=== PATIENT | female | born 1955 | race Caucasian/White ===

== ENCOUNTER 2016-05-01 08:26 | Inpatient (IN) | payer OTHER ==
[~2016-05-01] VITALS: Ht 165.1 cm; Wt 131.3 kg
[~2016-05-01 08:26] MED LIST: /BACTSSTA PO; /CELE20CA OR; /CELE20CA PO; /ESCI10TA OR; /PANT40TA OR; ALBU83IN INH; ALBUTEROL INH; AMLO10TAB OR; ASPI325T OR; BACT800T PO; CHLORTHALIDONE PO; CLIN150C OR; COLA50CA3 PO; COZA100T OR; GABA600T3 OR; GLUC1000 OR; GLUC10TA3 PO; HYDR10TA2 OR; HYDR25TA8 OR; INSULANT SC; LEVO500T PO; LIPI20TA OR; LOVAZA PO; NOVOINJ3 SC; SPIR25TA2 PO; TRAM50TA2 OR; TRILIPIX PO; TYLE325T5 PO; VESICARE PO
[2016-05-01] MEDS ORDERED: NS 1,000 ML IV SCH (09:26)
[2016-05-01] MEDS ORDERED: GLUCAGON FOR INJ 1 MG VIAL (J1610) SC PRN (09:30)
[2016-05-01] MEDS ORDERED: ONDANSETRON 4MG/2ML VIAL (J2405) IV PRN (09:30)
[2016-05-01] MEDS ORDERED: GLUCOSE 4 GM CHEW TABLET PO PRN (09:30)
[2016-05-01] MEDS ORDERED: DEXTROSE 50% 50 ML SYRINGE IV PRN (09:30)
[2016-05-01 10:39] VITALS: BP 170/86
[2016-05-01 11:33] LABS: BASO % 0.2 % (0.0-1.0); EOS # 0.2 K/mm3 (0.0-0.50); EOS % 1.8 % (0.0-3.0); INR 0.89; LARGE UNSTAINED CELL # 0.1 K/mm3 (0.0-0.4); LARGE UNSTAINED CELL % 1.3 % (0.0-4.0); LYMPH # 1.1 K/mm3 (1.5-4.5); MEAN CORPUSCULAR HEMOGLOBIN 22.8 pg (27.0-33.0); MEAN CORPUSCULAR VOLUME 76.2 fl (80.0-96.0); MONO # 0.5 K/mm3 (0.0-0.8); MONO % 4.7 % (0.0-5.0); NEUTROPHILS # 9.3 K/mm3 (1.8-7.7); PLATELET COUNT, AUTOMATED 454 k/mm3 (150-450); RED CELL DISTRIBUTION WIDTH 15.1 % (11.5-14.5); WHITE BLOOD COUNT 11.3 K/mm3 (4.0-10.0)
[2016-05-01 11:59] LABS: ALBUMIN 1.8 GM/DL (3.2-5.2); ALBUMIN/GLOBULIN RATIO 0.53 (1.00-1.93); BILIRUBIN,TOTAL 0.2 MG/DL (0.2-1.0); CALCIUM LEVEL 7.7 MG/DL (8.8-10.2); CREATININE FOR GFR 1.05 MG/DL (0.55-1.02); GLOMERULAR FILTRATION RATE 56.7 (>45); MAGNESIUM LEVEL 2.2 MG/DL (1.8-2.4); POTASSIUM SERUM 4.1 MEQ/L (3.5-5.1); THYROXINE (T4) 5.8 UG/DL (4.5-12.0); TOTAL PROTEIN 5.2 GM/DL (6.4-8.2)
[2016-05-01] MEDS: HumaLOG INSULIN (NovoLOG) PER UNIT SC SCH ×3 (12:00→21:31)
--- NOTE | 2016-05-01 12:17 | REP ---
CHEST X-RAY: Two views. HISTORY: Syncope. COMPARISON: Chest x-ray July 25, 2015. FINDINGS: There is mild to moderate cardiomegaly again noted. There is some pleural thickening along the right lateral chest wall unchanged. No pleural effusion is seen. Pulmonary vasculature is not increased. No infiltrate is seen. IMPRESSION: Cardiomegaly. Otherwise no acute disease. Signed by Kel Tam MD 05/01/2016 02:27 P
[2016-05-01] MEDS ORDERED: PANT40TA2 PO (13:30)
[2016-05-01] MEDS ORDERED: HYDR25T PO (13:30)
[2016-05-01] MEDS ORDERED: LEVO25TA5 PO (13:30)
[2016-05-01] MEDS ORDERED: LOSA100T36 PO (13:30)
[2016-05-01] MEDS ORDERED: NYST100024 TOP (13:30)
[2016-05-01] MEDS ORDERED: ALBU17IN INH (13:30)
[2016-05-01] MEDS ORDERED: IPRA2IN INH (13:30)
[2016-05-01] MEDS ORDERED: AMLO10TA2 PO (13:30)
[2016-05-01] MEDS ORDERED: ASPI32ECTA PO (13:30)
[2016-05-01] MEDS ORDERED: HYDR10TAB PO (13:30)
[2016-05-01] MEDS ORDERED: TRAM50TA2 PO (13:30)
[2016-05-01] MEDS ORDERED: CARV3.12 PO (13:30)
[2016-05-01] MEDS ORDERED: ATOR40TA PO (13:30)
[2016-05-01] MEDS ORDERED: COLA100C PO (13:30)
[2016-05-01] MEDS ORDERED: CELE1CAP9 PO (13:30)
[2016-05-01] MEDS ORDERED: LEXA1TAB PO (13:30)
[2016-05-01] MEDS ORDERED: POTA20TA PO (13:30)
[2016-05-01] MEDS ORDERED: GABA600T PO (13:30)
[2016-05-01] MEDS ORDERED: DOXY100T PO (13:30)
[2016-05-01] MEDS ORDERED: LASI20TA PO (13:30)
[2016-05-01] MEDS ORDERED: ANOR1AER INH (13:33)
[2016-05-01] MEDS ORDERED: INSULANT SC (13:33)
[2016-05-01] MEDS ORDERED: ARNU1INH INH (13:33)
[2016-05-01] MEDS ORDERED: IPRATROPIUM 0.5MG/ALBUTEROL 2.5MG INH SOL UD 3ML (DUONEB)(J7620) NEB PRN (13:45)
[2016-05-01] MEDS: IPRATROPIUM 0.5MG/ALBUTEROL 2.5MG INH SOL UD 3ML (DUONEB)(J7620) NEB SCH ×2 (14:00→19:59)
[2016-05-01 14:04] VITALS: BP 158/80
[2016-05-01] MEDS: HEPARIN SOD (PORCINE) 5000 UNITS/ML VIAL SQ SCH ×2 (14:21→21:43)
[2016-05-01] MEDS ORDERED: VANCOMYCIN HCL 1,000 MG, VIAL MATE ADAPTER 1 EACH in D5W 250 ML IV ONE (15:00)
--- NOTE | 2016-05-01 15:18 | HPE ---
DATE OF ADMISSION: 05/01/2016 PRIMARY CARE PROVIDER: Dr. Ramos CHIEF COMPLAINT: Low sugar and dizziness. HISTORY OF PRESENT ILLNESS: Mrs. Baltazar is a pleasant 61-year-old female with history of uncontrolled diabetes, osteomyelitis, and morbid obesity who was transferred from [facility] today for symptomatic hypoglycemia and possible endocrinology consult. Patient started feeling lightheadedness and weak to her legs as she tried to sit down on her bedside commode this morning. She was then brought to [facility]. At that time, her fingerstick was found to be in the 50s. Earlier this week, she also had an unwitnessed syncopal event which then prompted her admission overnight for observation at [place]. Of note, the patient has a history of osteomyelitis and diabetic foot ulcer currently undergoing wound care management at [facility], Dr. Steen. She went to his office last week. At that time because of concern for infection, she had an MRI done and was started an antibiotics, possibly Augmentin. After starting on antibiotics, she noticed that her fingersticks were running low and actually was averaging at least two episodes of near syncope a day. She actually presented to [facility] ED at least three times this week, and during one of these presentations, insulin was cut down to 30 units twice a day from 60 units twice a day. Admits to having a good appetite. Drinks excessive water, approximately a gallon a day. At baseline has some chronic shortness of breath, but noticed that her breathing also worsened in the last week. Associated with green productive cough, pillow orthopnea, paroxysmal nocturnal dyspnea (PND), approximately 40 pound weight gain in the last five months. No fevers, chills or night sweats. Vitals at [place] blood pressure 171/78, heart rate 77, respiratory rate 20, pulse oximetry 92% on 2 liters nasal cannula and temperature 98.6. Glucose was 112. BUN 20, creatinine 1, sodium 139, potassium 4. Previously glucose was 40. White count was 14.5, hemoglobin 11.3, hematocrit 36.3, platelets 530. AST 24, ALT 23 , alkaline phosphatase 168. PAST MEDICAL HISTORY: Osteomyelitis of right toe. There is also documentation from [facility] of Methicillin-resistant Staphylococcus aureus (MRSA) infection. Diastolic heart failure, ejection fraction of 60-65% from echo in May 2015, right ventricular systolic pressure 24. Hypertensive heart disease. Type 2 diabetes on insulin, uncontrolled. Chronic back pain. Chronic obstructive pulmonary disease (COPD). No pulmonary function test documented. Wheelchair bound. Gastroesophageal reflux disease (GERD). Depression and anxiety. Diabetic neuropathy. Hyperlipidemia. Candidiasis of the groin. Methicillin-resistant Staphylococcus aureus (MRSA) infection. Obstructive sleep apnea (OLGA), could not tolerate CPAP. Obesity. 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 PAST SURGICAL HISTORY: Umbilical hernia repair. Total abdominal hysterectomy. section. FAMILY HISTORY: Father from heart disease, stroke, and diabetes. Mother with diabetes. Siblings with diabetes, heart disease. One brother and two sisters . ALLERGIES: 1. KEFLEX - stomachache. HOME MEDICATIONS: - albuterol two puffs inhaled four times a day as needed - Norvasc 10 mg by mouth daily - Anoro Ellipta one inhalation at bedtime - Arnuity Ellipta 1 mcg inhaled daily - aspirin 81 mg by mouth daily - atorvastatin 40 mg by mouth daily - Coreg 3.125 mg by mouth twice a day - celecoxib 200 mg by mouth daily - Colace 100 mg by mouth twice a day - doxycycline 100 mg by mouth daily, unclear, possibly for foot infection? - Lexapro 10 mg by mouth at bedtime - Lasix 20 mg by mouth twice a day - gabapentin 600 mg by mouth twice a day - hydralazine 10 mg by mouth four times a day - hydroxyzine 25 mg by mouth three times a day - Lantus 30 unit subcu twice a day. Previously was on 60. - Atrovent 0.5 inhaled twice a day - Synthroid 25 mcg by mouth daily - losartan 100 mg by mouth daily - nystatin powder topical twice a day to abdominal folds - butalbital 40 mg by mouth daily - potassium chloride 20 mEq by mouth twice a day - tramadol 50 mg by mouth three times a day as needed SOCIAL HISTORY: Patient is an ex- smoker, used to smoke for greater than 20 years, two packs per day. No alcohol use. Last drink was [place]. No excessive alcohol use. No drug use. Currently lives at home with her and brother. No recent travel. She used to work in housekeeping in the hospital. Currently lives at home, baseline she is fairly immobile, mostly in bed, or in her wheelchair. has one dog at home, but 10 outside cats. REVIEW OF SYSTEMS: CONSTITUTIONAL: Negative for fevers, chills, night sweats. Positive for approximately 40 pound weight gain. HEENT: Positive for right eye corneal melt many years ago. No difficulty with speech and swallow. CARDIOVASCULAR: No chest pain, palpitations. Positive for bilateral lower extremity edema. PULMONARY: Please see above. No hemoptysis. GASTROINTESTINAL: Denies hematochezia, melena, or hematemesis, nausea, vomiting , diarrhea, constipation. GENITOURINARY: No dysuria, frequency or hematuria. Positive for excessive urination, but she also gets very thirsty and drinks approximately a gallon a day. MUSCULOSKELETAL: No bone, muscle. Chronic back pain NEUROLOGICAL: No paralysis, paresthesia, headaches. ENDOCRINE: Positive for thyroid and diabetes. Recently started on thyroid supplementation. ONCOLOGY: No history of malignancy. HEMATOLOGY: No abnormal bleeding or bruising. PSYCHIATRIC: Positive for anxiety. PHYSICAL EXAMINATION: VITAL SIGNS: Blood pressure 170/86, heart rate 60, temperature 96.9, respiratory rate 20, pulse oximetry 90% on room air. GENERAL: Patient is sitting in bed comfortable in no acute distress. She is alert, awake and oriented times three, pleasant and cooperative, obese appearing. HEENT: Normocephalic, atraumatic. Moist oral mucosa. Edentulous. She has ecchymotic changes on her face from her recent syncopal episode. NECK: Large, could not appreciate jugular venous distention (JVD) secondary to large neck size. CHEST: Symmetric chest rise, no accessory muscle use. Breath sounds are with expiratory wheezing in all lung bases. HEART: Distant sounds, but regular. Could not appreciate any murmurs, rubs or gallops. ABDOMEN: Obese, nontender, nondistended. Bowel sounds present. No guarding. No rebound. Her abdominal exam with pannus, erythematous changes. Likely from fungal infection. EXTREMITY: 1-2+ pitting edema in all extremities. Left lateral leg wound VAC in place, appears to be functioning well at 125 in her wound VAC canister. Left foot with multiple pressure ulcers. Left lateral foot wound measures 1.0 cm x 1.6 cm x 0.2 cm, nontender to palpation. Right lateral big toe 1.5 cm x 1.0 cm x 0.4 cm. Right foot dorsal surface 1.9 cm x 1.1 cm x 1.1 cm. There is also skin breakdown on her bilateral knees from her recent fall at home. Most of her wounds are clean and dry without purulent or serosanguinous discharge. They are not tender to palpation. No areas of maceration. Periwound appear clean and dry. NEUROLOGIC: No focal deficits appreciated. LABORATORY DATA: WBC 11.3, hemoglobin 10.2, hematocrit 34, platelets 454, baseline hemoglobin appears to be around 10-11 range. Neutrophils 82. Sodium 141, potassium 4.1, chloride 100, carbon dioxide 35, BUN 22, creatinine 1.05, glucose 106, hemoglobin A1c 9.4, calcium 7.7, magnesium 2.2, AST 20, ALT 18, alkaline phosphatase 161. CK 256, Troponin negative. CRP 5.91. ESR 66, total protein 5.1, thyroid studies normal. ESR 66. Chest x-ray showed mild to moderate cardiomegaly with pleural thickening on the right lateral chest, unchanged. No effusion or infiltrate. IMPRESSION/PLAN: Mrs. Baltazar is a 61-year-old female with history of uncontrolled diabetes and osteomyelitis who is currently being treated outpatient for possible infection, transferred from [facility] for symptomatic hypoglycemia. 1. Symptomatic hypoglycemia. Her fingerstick earlier today was in the 40s to 50s. The patient previously was on high dose Lantus, as high as 60 to 80 units twice a day. However, due to her recent episode of hypoglycemias, dose has been cut down. Because of difficulty controlling her hypoglycemia, the patient was transferred here for further treatment. For now the patient will be continued with carbohydrate consistency diet. Stop all her long acting insulin and start her insulin sliding scale. Based on her need for short acting, we will be able to adjust her long acting insulin. Her hemoglobin A1c today is 9.4. 2. Pressure wound with multiple diabetic food ulcers, present on presentation. Reportedly has been seeing wound care at [facility] and has a wound VAC in place, recently changed yesterday. Wound vac would have to be changed Mondays, Wednesdays, Fridays. This is secondary to uncontrolled diabetes and pressure ulcers. Continue offloading, leg elevation. Patient reportedly had MRI done at outside facilities, have requested records from [place]. Will start her empiric antibiotic, Vancomycin and Zosyn. Patient has a history of MRSA in the past. 3. Congestive heart failure (CHF), diastolic. Continue current diuresis. Will monitor her output and consider increasing diuresis based on her clinical progression. A gallon of water a day might be too excessive for her. Her polydipsia is likely secondary to her uncontrolled diabetes. 4. Diabetic neuropathy. Continue gabapentin. 5. Chronic obstructive pulmonary disease (COPD). Continue nebulizer treatment. 6. Anxiety. Continue home dose Lexapro. 7. Gastroesophageal reflux disease (GERD). Continue home dose Protonix. 8. Hypertension. Continue Lasix, Cozaar, hydralazine and Coreg 3.125 mg by mouth twice a day. 9. Hyperlipidemia. Continue Lipitor. 10. Hypothyroidism. Continue levothyroxine, this was recently started by her primary doctor. 11. Obstructive sleep apnea (OLGA). Patient could not tolerate her home CPAP. 12. Obesity. BMI 40. Will complicate medical management. 13. History of noncompliance. Unfortunately, will complicate medical management. 14. Deep vein thrombosis (DVT) prophylaxis. Sequential compression devices (SCD), thromboembolic deterrent stockings (TEDS) and heparin. DISPOSITION: Due to the patient's condition, we expect her stay to be greater than two midnights. My preceptor for this patient encounter was Dr. Graham Marie. The preceptor was physically present in the building during the encounter and was fully available. As needed, all aspects of the patient interview, examination, medical decision making process, and medical care plan development were reviewed and approved by the preceptor. The preceptor is aware and concurs with the plan as stated in the body of this note and will attest to such by his/her cosignature. cc: Dr. Richard POWER
[2016-05-01] MEDS: FUROSEMIDE 20 MG TAB PO SCH (16:21)
[2016-05-01] MEDS: **hydrALAZINE** 10 MG TAB PO SCH ×2 (16:23→21:43)
--- NOTE | 2016-05-01 18:18 | PHACANCOPD ---
PHARMACY VANCOMYCIN DOSING Pt Demographics Demographics Patient Age:61 , Weight:131.300 , Gender: female Adjusted Body Weight Date: 05/01/16, Adjusted Body Weight: Kg Events Past 24 Hours Events Past 24 Hours: NO: Change in CrCl, Dialysis, Diuretic Therapy, Elevation in WBC, Fever, Other, Pending Diagnostics, Pending Procedures Vancomycin Vancomycin indication: Hx of MRSA Vancomycin Target Ranges: 15-20 mcg/ml Vancomycin Load Y/N: Yes Load Dose Date Time Vancomycin Load Dose: 1000mg Date: 05/01 Time: 15:00 Vancomycin Dose Date: 05/01/16. Current Vancomycin Dose: [1g IV q12h @21] Intermittent Dosing?: No Labs Labs Item Value Date Time White Blood Count 11.3 K/mm3 H 05/01/16 1107 Creatinine 1.05 MG/DL H 05/01/16 1107 C-Reactive Protein, Quantitative 5.91 MG/DL H 05/01/16 1107 Micro Microbiology 05/01/16 Blood Culture, Received Pending 05/01/16 Blood Culture, Received Pending Creatinine Clearance Date:05/01/16. Creatinine Clearance: [76 ml/min]. Assessment and Plan Maintaining Current Dose?: Yes Reason for dose change: No Dose Change Pharmacist Note Pharmacist Note Date: 05/01/16. Pharmacist note: pt has been started on Vanco for a diabetic foot ulcer - per records pt has a Hx of MRSA osteomyelitis at [place]. Last wound cultures here in 2011 grew MSSA and E. faecalis (SAULO = 1). She was previously on Augmentin prior to this admission. She was on vancomycin here in 2011, I will resume similar dosing. She received her first dose of vanco @15:00 today and I have started 1g IV q12h tonight at 21:00. We will continue to monitor and order a trough as necessary. Missael Trujillo Pharm.D. May 01, 2016 18:18
[2016-05-01] MEDS ORDERED: ATORVASTATIN 20 MG TAB PO SCH (21:00)
[2016-05-01] MEDS: GABAPENTIN 300 MG CAP PO SCH (21:42)
[2016-05-01] MEDS: VANCOMYCIN HCL 1,000 MG, VIAL MATE ADAPTER 1 EACH in D5W 250 ML IV SCH (21:42)
[2016-05-01] MEDS: ESCITALOPRAM OXALATE 10 MG TAB (LEXAPRO) PO SCH (21:42)
[2016-05-01] MEDS: NYSTATIN 100,000 UNITS/GM TOPICAL PWD 15 GM TOP SCH (21:43)
[2016-05-01] MEDS: CARVedilol 3.125 MG TAB PO SCH (21:44)
[2016-05-01 22:00] VITALS: BP 187/78
[2016-05-01] MEDS: PIPERACILLIN/TAZOBACTAM SOD 3.375 GM in D5W MINI-BAG PLUS 50 ML IV SCH (22:58)
[2016-05-02 00:04] VITALS: BP 194/82
[2016-05-02] MEDS: IPRATROPIUM 0.5MG/ALBUTEROL 2.5MG INH SOL UD 3ML (DUONEB)(J7620) NEB SCH ×4 (02:00→19:24)
[2016-05-02 03:19] VITALS: BP 170/68
[2016-05-02 06:00] VITALS: BP_SYST 178; BP_SYST 183; BP_DIAS 77; BP_DIAS 82
[2016-05-02] MEDS: LEVOTHYROXINE 0.025 MG TAB (25 MCG) PO SCH (06:18)
[2016-05-02] MEDS: HEPARIN SOD (PORCINE) 5000 UNITS/ML VIAL SQ SCH ×3 (06:18→22:14)
[2016-05-02] MEDS: PIPERACILLIN/TAZOBACTAM SOD 3.375 GM in D5W MINI-BAG PLUS 50 ML IV SCH ×3 (06:19→22:15)
[2016-05-02 06:20] LABS: MEAN CORPUSCULAR HEMOGLOBIN 23.6 pg (27.0-33.0); MEAN CORPUSCULAR HGB CONC 31.4 g/dl (32.0-36.5); MEAN CORPUSCULAR VOLUME 75.1 fl (80.0-96.0); RED CELL DISTRIBUTION WIDTH 15.3 % (11.5-14.5); WHITE BLOOD COUNT 6.6 K/mm3 (4.0-10.0)
[2016-05-02 06:24] LABS: INR 0.94
[2016-05-02 06:37] LABS: ANION GAP 7 MEQ/L (8-16); BLOOD UREA NITROGEN 20 MG/DL (7-18); CALCIUM LEVEL 8.2 MG/DL (8.8-10.2); CARBON DIOXIDE LEVEL 32 MEQ/L (21-32); CHLORIDE LEVEL 104 MEQ/L (98-107); CREATININE FOR GFR 0.93 MG/DL (0.55-1.02); GLOMERULAR FILTRATION RATE > 60.0 (>45); GLUCOSE, FASTING 111 MG/DL (80-110); MAGNESIUM LEVEL 2.3 MG/DL (1.8-2.4); POTASSIUM SERUM 3.7 MEQ/L (3.5-5.1); SODIUM LEVEL 143 MEQ/L (136-145)
[2016-05-02] MEDS: traMADol 50 MG TAB PO PRN (06:38)
[2016-05-02] MEDS: HumaLOG INSULIN (NovoLOG) PER UNIT SC SCH ×4 (07:30→20:53)
[2016-05-02] MEDS: VANCOMYCIN HCL 1,000 MG, VIAL MATE ADAPTER 1 EACH in D5W 250 ML IV SCH ×2 (09:18→20:54)
[2016-05-02] MEDS: PANTOPRAZOLE 40MG TAB (PROTONIX) PO SCH (09:53)
[2016-05-02] MEDS: ATORVASTATIN 20 MG TAB PO SCH (09:53)
[2016-05-02] MEDS: ASPIRIN 325 MG TAB PO SCH (09:53)
[2016-05-02] MEDS: GABAPENTIN 300 MG CAP PO SCH ×2 (09:53→20:53)
[2016-05-02] MEDS: FUROSEMIDE 20 MG TAB PO SCH ×2 (09:54→16:55)
[2016-05-02] MEDS: **hydrALAZINE** 10 MG TAB PO SCH ×4 (09:57→20:53)
[2016-05-02] MEDS: LOSARTAN 50 MG TAB PO SCH (09:57)
[2016-05-02] MEDS: CARVedilol 3.125 MG TAB PO SCH (09:59)
[2016-05-02] MEDS: amLODIPine 10 MG TAB PO SCH (09:59)
[2016-05-02] MEDS: NYSTATIN 100,000 UNITS/GM TOPICAL PWD 15 GM TOP SCH ×2 (09:59→20:55)
--- NOTE | 2016-05-02 11:22 | ECGEPIP ---
Stationary ECG Study [facility] Test Date: 2016-05-01 Pat Name: BERNA FRANCES Department: Room: [place] [address] Gender: F [employer] Research Engineer: ARABELLA : 1955 Requested By: YANIV Ly Order Number: [id number] Reading MD: David Nicole Measurements Intervals [place] Rate: 68 P: 65 NM: 179 QRS: -25 QRSD: 101 T: 37 QT: 410 QTc: 437 Interpretive Statements SINUS RHYTHM POOR R WAVE PROGRESSION, CANNOT R/O AWMI PROBABLY OLD SIMILAR 07/25/15 Electronically Signed On 05-02-2016 11:22:08 EST by David Nicole
[2016-05-02 14:00] VITALS: BP 112/89
--- NOTE | 2016-05-02 14:47 | IPN ---
DATE: 05/02/2016 Ms. Baltazar is feeling well today. She has no complaints of pain. She is tolerating a diet. No chest pain, no shortness of breath. Temperature 97.7, pulse 75, respiratory rate 17, blood pressure 168/76, 89% on room air. Intake and output notable for a positive fluid balance of 200, three bowel movements yesterday, three bowel movements today. She is awake, appropriately interactive, pleasantly conversant. Breathing is symmetrical and diminished. I-to-E ratio if 1:3. Speaking in complete sentences. No accessory muscle use. Heart is regular rate and rhythm. Abdomen is soft, doughy, nontender. Wound VAC is place on the lower extremities. She is on contact precaution for concern about fleas. White cell count 6.6, hemoglobin 9.8, platelets of 412. Fasting glucose this morning 111. Creatinine 0.93. Hemoglobin A1c is 9.4. My assessment is as follows: This is a 61-year-old transferred from [facility] with concern about recurrent hypoglycemia. Plan is as follows: 1. For symptomatic hypoglycemia. Long acting Lantus has been discontinued. Will continue with sliding scale. Thus far in 24 hours she has required 8 units of insulin. She may benefit as an outpatient from metformin and low dose Lantus once daily. Will continue to follow her clinically. 2. The patient has multiple diabetic foot ulcers and is being treated empirically with broad spectrum antibiotics. White cell count is improving. Will likely ask for video consultation from Dr. Kennedy tomorrow depending on her clinical course. 3. The patient has congestive heart failure (CHF). Continue with current care. 4. The patient has diabetic neuropathy. Continue Neurontin. 5. The patient has chronic obstructive pulmonary disease (COPD). Seems to be stable. 6. The patient has anxiety on Lexapro. 7. The patient has hypertension. Can likely increase her antihypertensive regimen at this point. 8. The patient has hyperlipidemia. 9. The patient has hypothyroidism. She was recently started outpatient thyroid profile looks to be within the normal range on low dose Synthroid. 10. The patient has obstructive sleep apnea (OLGA) and does not tolerate CPAP. 11. The patient has morbid obesity which complicates care. 12. The patient has appropriate deep vein thrombosis (DVT) prophylaxis.
[2016-05-02] MEDS: ACETAMINOPHEN TAB 650MG DOSE (2X325MG) PO PRN (16:56)
[2016-05-02] MEDS: CARVedilol 6.25 MG TAB PO SCH (20:52)
[2016-05-02] MEDS: ESCITALOPRAM OXALATE 10 MG TAB (LEXAPRO) PO SCH (20:53)
[2016-05-02 22:00] VITALS: BP 184/78
[2016-05-03] MEDS: IPRATROPIUM 0.5MG/ALBUTEROL 2.5MG INH SOL UD 3ML (DUONEB)(J7620) NEB SCH ×4 (02:22→20:12)
[2016-05-03 06:00] VITALS: BP 154/78
[2016-05-03] MEDS: PIPERACILLIN/TAZOBACTAM SOD 3.375 GM in D5W MINI-BAG PLUS 50 ML IV SCH ×3 (06:00→22:47)
[2016-05-03] MEDS: HEPARIN SOD (PORCINE) 5000 UNITS/ML VIAL SQ SCH ×3 (06:00→21:45)
[2016-05-03] MEDS: LEVOTHYROXINE 0.025 MG TAB (25 MCG) PO SCH (06:00)
[2016-05-03] MEDS: traMADol 50 MG TAB PO PRN (07:20)
[2016-05-03] MEDS: HumaLOG INSULIN (NovoLOG) PER UNIT SC SCH ×4 (08:18→20:30)
[2016-05-03 08:24] LABS: MEAN CORPUSCULAR HEMOGLOBIN 23.5 pg (27.0-33.0); MEAN CORPUSCULAR HGB CONC 31.3 g/dl (32.0-36.5); MEAN CORPUSCULAR VOLUME 75.2 fl (80.0-96.0); RED CELL DISTRIBUTION WIDTH 15.3 % (11.5-14.5); WHITE BLOOD COUNT 6.3 K/mm3 (4.0-10.0)
[2016-05-03] MEDS: amLODIPine 10 MG TAB PO SCH (08:24)
[2016-05-03] MEDS: ATORVASTATIN 20 MG TAB PO SCH (08:25)
[2016-05-03] MEDS: LOSARTAN 50 MG TAB PO SCH (08:27)
[2016-05-03] MEDS: GABAPENTIN 300 MG CAP PO SCH ×2 (08:27→21:46)
[2016-05-03] MEDS: CARVedilol 6.25 MG TAB PO SCH ×2 (08:27→21:47)
[2016-05-03] MEDS: ASPIRIN 325 MG TAB PO SCH (08:28)
[2016-05-03] MEDS: FUROSEMIDE 20 MG TAB PO SCH ×2 (08:28→18:16)
[2016-05-03] MEDS: **hydrALAZINE** 10 MG TAB PO SCH ×3 (08:28→18:33)
[2016-05-03] MEDS: PANTOPRAZOLE 40MG TAB (PROTONIX) PO SCH (08:28)
[2016-05-03 08:30] LABS: INR 0.94
[2016-05-03 08:42] LABS: ANION GAP 7 MEQ/L (8-16); BLOOD UREA NITROGEN 15 MG/DL (7-18); CALCIUM LEVEL 8.4 MG/DL (8.8-10.2); CARBON DIOXIDE LEVEL 31 MEQ/L (21-32); CHLORIDE LEVEL 105 MEQ/L (98-107); CREATININE FOR GFR 0.84 MG/DL (0.55-1.02); GLOMERULAR FILTRATION RATE > 60.0 (>45); GLUCOSE, FASTING 151 MG/DL (80-110); MAGNESIUM LEVEL 2.2 MG/DL (1.8-2.4); POTASSIUM SERUM 3.7 MEQ/L (3.5-5.1); SODIUM LEVEL 143 MEQ/L (136-145)
[2016-05-03] MEDS: VANCOMYCIN HCL 1,000 MG, VIAL MATE ADAPTER 1 EACH in D5W 250 ML IV SCH (10:46)
[2016-05-03] MEDS: NYSTATIN 100,000 UNITS/GM TOPICAL PWD 15 GM TOP SCH ×2 (10:46→21:48)
--- NOTE | 2016-05-03 14:25 | PHACANCOPD ---
PHARMACY VANCOMYCIN DOSING Pt Demographics Demographics Patient Age:61 , Weight:131.300 , Gender: female Adjusted Body Weight Date: 05/01/16, Adjusted Body Weight: Kg Vancomycin Vancomycin indication: Hx of MRSA Vancomycin Target Ranges: 15-20 mcg/ml Vancomycin Load Y/N: Yes Load Dose Date Time Vancomycin Load Dose: 1000mg Date: 05/01 Time: 15:00 Vancomycin Dose Date: 05/01/16. Current Vancomycin Dose: [1g IV q12h @21] Intermittent Dosing?: No Labs Micro Microbiology 05/01/16 Blood Culture - Preliminary, Resulted No Growth after 48 hours. All Specime... 05/01/16 Blood Culture - Preliminary, Resulted No Growth after 48 hours. All Specime... 05/01/16 Gram Stain - Final, Complete 05/01/16 Sputum Culture - Final, Complete Creatinine Clearance Date:05/01/16. Creatinine Clearance: [76 ml/min]. Assessment and Plan Maintaining Current Dose?: No Reason for dose change: Trough too low Pharmacist Note Pharmacist Note 05/03/16: Trough today resulted at 11.6, drawn on time prior to the 5th dose. I will increase vancomycin to 750 mg IV Q8H for the treatment of multiple diabetic foot ulcers given empirically with IV zosyn - aiming for a goal trough of 15-20 mcg/ml. WBC is currently WNL, and patient has been afebrile over past 24 hours, but CRP is elevated. A follow-up trough has been scheduled for 05/04/16 @0800. We will continue to monitor and make dose adjustments as needed. Date: 05/01/16. Pharmacist note: pt has been started on Vanco for a diabetic foot ulcer - per records pt has a Hx of MRSA osteomyelitis at [place]. Last wound cultures here in 2011 grew MSSA and E. faecalis (SAULO = 1). She was previously on Augmentin prior to this admission. She was on vancomycin here in 2011, I will resume similar dosing. She received her first dose of vanco @15:00 today and I have started 1g IV q12h tonight at 21:00. We will continue to monitor and order a trough as necessary. JAREN CHOI PHARMACY May 03, 2016 14:25
--- NOTE | 2016-05-03 14:29 | CR ---
TELEMEDICINE CONSULTATION DATE OF CONSULTATION: 05/03/[address] Graham Marie. This is regarding wound vacuum-assisted closure (VAC) therapy for a left lower extremity wound. HISTORY OF PRESENT ILLNESS: A 61-year-old neuropathic diabetic female being treated at the [facility] with wound VAC therapy over the last 4 months. The patient was a resident at [facility] where recently there were problems regulating her blood and for that reason the patient was admitted to [facility].. Her blood glucose has been closely monitored and has improved somewhat.. However,it is still fluctuating between 120 and 250. She is on intravenous (IV) antibiotics. The patient gives no history of treatment for prior osteomyelitis , although pertinent records from the wound center in [place] were not obtainable at this time. Consent was obtained via the nurses for telemedicine evaluation. On the left lower extremity, lateral supramalleolar area there is a wound which has been treated with wound VAC therapy over the last 4 months. The wound measures 6.7 cm x 2.8 cm with a wound depth of 1.5 cm. The wound base shows granulation tissue with fibrin deposits. There is no bone, tendon, or fascia exposed. The drainage is serous, moderate, without odor. There is edema, which is nonpitting, involving the lower extremity. Wound edges are fixed, and the periwound shows no erythema, maceration, or ischemic change. On the right foot, there are two wounds present. On the plantar surface of the great toe, there is a wound measuring 1.6 cm x 0.9 cm with a depth of 0.4 cm. This wound base shows some granulation tissue with superficial fibrin slough. There is no bone, tendon, or fascia exposed. Drainage is moderate, serosanguineous, without odor. Wound edges are fixed, and the periwound shows no erythema, maceration, or ischemic change. On the dorsal aspect of the right fourth toe, there is a wound measuring 2.4 cm x 1.1 cm with a wound depth of 0.2 cm. This wound base shows granulation tissue covered with superficial fibrin slough. Drainage is moderate, serosanguineous, without odor. No bone, tendon, or fascia is exposed within the wound base. Wound edges are fixed. There is mild erythema involving the digit. The patient is being followed at the [facility]; and when her diabetes is controlled, she should be followed up at that center. At this point, the wound VAC should be changed on a Tuesday, Tuesday, Tuesday basis, utilizing black foam with a continuous pressure of 125 mmHg. As there is edema involving the right and left lower extremity, the patient should avoid prolonged sitting and also should be in mild Trendelenburg position while in bed. If there has been no arterial evaluation, a CT angiogram or an MRA would be indicated. Continue with IV antibiotics until recently-obtained a wound cultures can be verified. However, if the patient has been recently treated with antibiotics, these cultures may not be true. Prior culture results from [place] would therefore be more accurate. In terms of the right lower extremity wounds, treatment should be Santyl to the wounds and a foam dressing. This should be done on a daily basis. Skin prep should be utilized for the periwound to avoid any local skin irritation and/or trauma. If there is any question and/or doubt, an MRI should be ordered to exclude osteomyelitis of the right foot and left ankle . Thank you for this consultation. JANNET
[2016-05-03] MEDS: SANTYL OINT 30GM TOP SCH (15:10)
[2016-05-03] MEDS ORDERED: VANCOMYCIN HCL 750 MG, VIAL MATE ADAPTER 1 EACH in D5W 250 ML IV SCH (17:00)
--- NOTE | 2016-05-03 18:21 | IPN ---
DATE: 05/03/2016 Ms. Baltazar is feeling well today. She has no pain, no chest pain, no shortness of breath. Tolerating a diet. Temperature is 96.7, pulse 69, respiratory rate 16, blood pressure 178/80, 95% on room air. Intake and output (I and O) notable for negative fluid balance of -195, four bowel movements yesterday. She is awake, appropriately interactive. Pleasantly conversant. Breathing is symmetrical, diminished. Heart: Normal S1, S2. Abdomen is soft, doughy, nontender. Her wound Vac is placed. She did remove that last night and it had to be replaced. She has multiple skin ulcers and foot findings. White cell count is 6.3, hemoglobin 10.3, platelets of 395. Sodium 143, BUN 15, creatinine 0.84. C-reactive protein is 2.6, and improving. ASSESSMENT: This is a 61-year-old transferred from [facility] with concern for recurrent hypoglycemia with bilateral lower extremity wounds. PLAN: 1. The patient has symptomatic hypoglycemia. This has improved with the use of the sliding scale. I would monitor another day on the sliding scale and then determine an appropriate dose of long acting insulin. She may benefit from outpatient metformin. 2. The patient has multiple diabetic foot ulcers. Was seen by Dr. Kennedy today who in short recommended MRA of the lower extremities, bilateral MRI of the feet and old records from [facility]. 3. The patient has congestive heart failure. Continue with current management. 4. The patient has diabetic neuropathy. 5. The patient has COPD. Seems stable. 6. The patient has anxiety. On Lexapro. 7. The patient has hypertension. 8. The patient has hyperlipidemia. 9. The patient has hypothyroidism for which she was recently started on treatment. 10. The patient has obstructive sleep apnea. Does not tolerate CPAP. 11. The patient has morbid obesity, which complicates care. 12. The patient on contact precautions for a diagnosis of fleas. 13. The patient has appropriate deep venous thrombosis (DVT) prophylaxis.
[2016-05-03 19:04] VITALS: BP 180/84
[2016-05-03] MEDS ORDERED: ACETYLCYSTEINE 10% 30 ML VIAL INH SCH (20:00)
[2016-05-03] MEDS ORDERED: VANCOMYCIN HCL 750 MG, VIAL MATE ADAPTER 1 EACH in D5W 250 ML IV ONE (20:30)
--- NOTE | 2016-05-03 21:08 | PHACANCOPD ---
PHARMACY VANCOMYCIN DOSING Pt Demographics Demographics Patient Age:61 , Weight:131.300 , Gender: female Adjusted Body Weight Vancomycin Vancomycin indication: Hx of MRSA Vancomycin Target Ranges: 15-20 mcg/ml Vancomycin Load Y/N: Yes Load Dose Date Time Re-Vancomycin Load Dose: 1250mg Date: 05/03 Time: 20:30 Vancomycin Dose Date: 05/01/16. Current Vancomycin Dose: [1g IV q12h @21] Intermittent Dosing?: No Labs Labs Laboratory Tests Test 05/03/16 08:10 Vancomycin Level Trough 11.6UG/ML (10.0-20.0) Laboratory Tests 05/03/16 08:10 Calcium Level 8.4, Red Blood Count 4.39, Mean Corpuscular Volume 75.2, Mean Corpuscular Hemoglobin 23.5, Mean Corpuscular Hemoglobin Concent 31.3, Red Cell Distribution Width 15.3 Micro Microbiology NOS Creatinine Clearance Date:05/01/16. Creatinine Clearance: [76 ml/min]. Assessment and Plan Maintaining Current Dose?: No Reason for dose change: Trough too low Pharmacist Note Pharmacist Note 05/03/16: PHARM.D NOTE (21:00): LOSS OF IV ACCESS TONIGHT DELATED THERAPY BY 4HRS. CURRENT Tx DCd AND THE PATIENT WAS RELOADED WITH 1250MG VANCO AT 20:30 THIS EVENING AND THEN WE WILL CONTINUE WITH VANCO 1GM IV Q8H STARTING AT 04:00 05/04/16 WE WILL OBTAIN ANOTHER TROUGH TOMORROW EVENING PRIOR TO HER 20:00 DOSE. RUBIO. Pharm.D. [facility] May 03, 2016 21:08
[2016-05-03] MEDS ORDERED: VANCOMYCIN HCL 500 MG in D5W MINI-BAG PLUS 100 ML IV ONE (21:30)
[2016-05-03] MEDS: ESCITALOPRAM OXALATE 10 MG TAB (LEXAPRO) PO SCH (21:46)
[2016-05-03] MEDS: ACETAMINOPHEN TAB 650MG DOSE (2X325MG) PO PRN (21:47)
[2016-05-03] MEDS: cloNIDine 0.1 MG TAB PO SCH (21:47)
[2016-05-03] MEDS: **hydrALAZINE HCL** 25 MG TAB PO SCH (21:47)
[2016-05-03 22:00] VITALS: BP 172/80
[2016-05-03] MEDS ORDERED: FUROSEMIDE 40 MG/4 ML VIAL (J1940) IV ONE (23:45)
[2016-05-04] MEDS: IPRATROPIUM 0.5MG/ALBUTEROL 2.5MG INH SOL UD 3ML (DUONEB)(J7620) NEB SCH ×4 (02:07→19:25)
[2016-05-04] MEDS: VANCOMYCIN HCL 1,000 MG, VIAL MATE ADAPTER 1 EACH in D5W 250 ML IV SCH ×2 (04:13→12:17)
[2016-05-04] MEDS: LEVOTHYROXINE 0.025 MG TAB (25 MCG) PO SCH (05:33)
[2016-05-04] MEDS: HEPARIN SOD (PORCINE) 5000 UNITS/ML VIAL SQ SCH ×3 (05:33→21:36)
[2016-05-04] MEDS: PIPERACILLIN/TAZOBACTAM SOD 3.375 GM in D5W MINI-BAG PLUS 50 ML IV SCH ×3 (05:33→21:32)
[2016-05-04 06:00] VITALS: BP 168/84
[2016-05-04 06:51] LABS: MEAN CORPUSCULAR HEMOGLOBIN 23.5 pg (27.0-33.0); MEAN CORPUSCULAR HGB CONC 31.1 g/dl (32.0-36.5); MEAN CORPUSCULAR VOLUME 75.6 fl (80.0-96.0); RED CELL DISTRIBUTION WIDTH 14.8 % (11.5-14.5); WHITE BLOOD COUNT 6.2 K/mm3 (4.0-10.0)
[2016-05-04 07:03] LABS: ANION GAP 7 MEQ/L (8-16); BLOOD UREA NITROGEN 14 MG/DL (7-18); CALCIUM LEVEL 7.8 MG/DL (8.8-10.2); CARBON DIOXIDE LEVEL 31 MEQ/L (21-32); CHLORIDE LEVEL 106 MEQ/L (98-107); CREATININE FOR GFR 0.85 MG/DL (0.55-1.02); GLOMERULAR FILTRATION RATE > 60.0 (>45); GLUCOSE, FASTING 193 MG/DL (80-110); POTASSIUM SERUM 3.2 MEQ/L (3.5-5.1); SODIUM LEVEL 144 MEQ/L (136-145)
--- NOTE | 2016-05-04 08:00 | REPUSA ---
Clinical history: Shortness of breath. Comparison: None. Findings: The mediastinum is within normal limits. The heart is enlarged. There is a right lower lobe infiltrate. No pleural effusion or pneumothorax is seen. The osseous structures and soft tissues are unremarkable. Impression: Right lower lobe infiltrate. Cardiomegaly.
[2016-05-04] MEDS: HumaLOG INSULIN (NovoLOG) PER UNIT SC SCH ×4 (08:05→21:00)
[2016-05-04] MEDS: cloNIDine 0.1 MG TAB PO SCH ×2 (08:06→21:34)
[2016-05-04] MEDS: GABAPENTIN 300 MG CAP PO SCH ×2 (08:06→21:35)
[2016-05-04] MEDS: ASPIRIN 325 MG TAB PO SCH (08:06)
[2016-05-04] MEDS: **hydrALAZINE HCL** 25 MG TAB PO SCH ×4 (08:06→21:36)
[2016-05-04] MEDS: PANTOPRAZOLE 40MG TAB (PROTONIX) PO SCH (08:06)
[2016-05-04] MEDS: ATORVASTATIN 20 MG TAB PO SCH (08:06)
[2016-05-04] MEDS: LOSARTAN 50 MG TAB PO SCH (08:07)
[2016-05-04] MEDS: FUROSEMIDE 20 MG TAB PO SCH ×2 (08:07→17:21)
[2016-05-04] MEDS: CARVedilol 6.25 MG TAB PO SCH ×2 (08:07→21:34)
[2016-05-04] MEDS: amLODIPine 10 MG TAB PO SCH (08:07)
[2016-05-04] MEDS: NYSTATIN 100,000 UNITS/GM TOPICAL PWD 15 GM TOP SCH ×2 (08:10→21:36)
[2016-05-04] MEDS: SANTYL OINT 30GM TOP SCH (08:10)
[2016-05-04] MEDS ORDERED: POTASSIUM CHLORIDE 10 MEQ SR TABLET PO ONE (09:00)
--- NOTE | 2016-05-04 11:27 | REP ---
MRI of the right and left foot without and with IV gadolinium: Bilateral foot MR study. History: Osteomyelitis. Comparison MRI study February 07, 2012. Technique: Axial, coronal, and sagittal imaging planes are utilized with T1 and T2-weighted scans with and without fat saturation bilaterally in the feet. Intravenous gadolinium was administered with a 26.2 mL dose. Left foot MRI findings: There is moderate to marked diffuse soft tissue swelling and edema throughout the forefoot dorsally and ventrally. There is no visible soft tissue abscess. Skin thickening is seen dorsally in the forefoot. Cortical and medullary bone signal intensity are normal in the tarsal bones, metatarsal bones, and phalanges. There is no MR evidence to suggest osteomyelitis. Post-gadolinium enhanced images of the left foot show no abnormal intraosseous enhancement. No evidence of soft tissue abscess is seen. Impression: Diffuse subcutaneous and intramuscular edema in the soft tissues throughout the forefoot and midfoot on the left side. No evidence of abscess. No MR evidence of osteomyelitis. Right foot MRI findings: There is mild to moderate diffuse soft tissue swelling dorsally and ventrally. There is a tendon sheath effusion in the right plantar midfoot soft tissues centrally. This measures 1.2 x 0.7 x 1.7 cm. This is along the flexor digitorum tendon. No other fluid collection is seen. There is no MR evidence to suggest osteomyelitis. Post gadolinium enhanced images show no significant gadolinium enhancement. No evidence of osteomyelitis seen. Impression: Tendon sheath effusion in the plantar midfoot on the right. No evidence of osteomyelitis or abscess seen. Signed by Kel Tam MD 05/04/2016 02:33 P
--- NOTE | 2016-05-04 12:36 | IPNPDOC ---
Subjective Date Seen The patient was seen on 05/04/16. Review of Systems CC/HPI The patient is a 61-year-old female admitted with a reason for visit of Hypoglycemia. General: Denies: Chills, Fatigue, Malaise, Night Sweats, Normal Appetite, Other Symptoms, ROS Unobtainable Constitutional: Denies: Chills, Fatigue, Fever, Lethargy, Malaise, Night Sweats , Other, Weakness, Weight Loss Eyes: Denies: Conjunctivae inflammation, Eyelid inflammation, Other, Pain, Redness, Vision change ENT: Denies: Dysphagia, Ear Pain, Epistaxis, Head Aches, Other Symptoms, Post Nasal Drip, Sinus Congestion, Sore Throat Skin: Denies: Breakdown, Bruising, Dry, Itching, Jaundice, Lesions, Nail Changes, Other, Rash Pulmonary: Denies: Cough, Dyspnea, Other Symptoms, Pleuritic Chest Pain Cardiovascular: Denies: Chest Pain, Edema, Lt Headedness, Orthopnea, Other Symptoms, Palpitations, Paroxysmal Noc. Dyspnea Gastrointestinal: Denies: Abdominal Pain, Constipation, Diarrhea, Hematochezia , Melena, Nausea, Other Symptoms, Vomiting Musculoskeletal: Reports: Back Pain, Denies: Arm Pain, Foot Pain, Hand Pain, Joint Pain, Leg Pain, Muscle Pain, Neck Pain, Other Symptoms, Shoulder Pain, Spasms Objective Physical Examination General Exam: Positive: Alert, Cooperative, No Acute Distress Eye Exam: Positive: PERRLA ENT Exam: Positive: Atraumatic Neck Exam: Positive: Supple Chest Exam: Positive: Clear to auscultation, Normal air movement Heart Exam: Positive: Rate Normal, Regular Rhythm Abdomen Exam: Positive: Normal bowel sounds, Soft, Negative: Tenderness Assessment/Plan Problems (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 MRI on this admission does not reveal any evidence of osteomyelitis. MRA pending for tomorrow. Continue with ale conn pending mra and further discussion with wound care. (2) Hypoglycemia Status: Resolved Discussed With: Patient Problem Specific Plan: Monitor Clinically, Repeat Labs Problem Text: Continue with insulin sliding scale. No basal insulin for now. (3) CHF (congestive heart failure) Status: Chronic Response to Treatment: Compensated Discussed With: Patient Problem Specific Plan: Monitor Clinically Problem Text: Continue with lasix. Grossly compensated. Diastolic dysfunction. (4) HTN (hypertension) Status: Chronic Problem Specific Plan: Monitor Clinically Problem Text: Much improved with addition of clonidine. Current regimen consists of losartan, hydralazine, norvasc, clonidine and lasix. (5) COPD (chronic obstructive pulmonary disease) Status: Chronic Discussed With: Patient Problem Specific Plan: Monitor Clinically Problem Text: Continue with respiratory regimen. (6) Diabetes Status: Chronic Response to Treatment: Uncontrolled Discussed With: Patient Problem Specific Plan: Monitor Clinically, Repeat Labs Problem Text: Sliding scale insulin. (7) GERD (gastroesophageal reflux disease) Status: Chronic Discussed With: Patient Problem Specific Plan: Monitor Clinically Problem Text: Protonix. (8) Anxiety and depression Status: Chronic Problem Specific Plan: Monitor Clinically Problem Text: Continue with Lexapro. (9) Wheelchair bound Status: Chronic (10) Hyperlipidemia Status: Chronic Problem Text: Continue Lipitor. (11) Diabetic neuropathy Status: Chronic Problem Text: Continue with neurontin. (12) OLGA (obstructive sleep apnea) Status: Chronic (13) Obesity Status: Chronic Problem Text: Further complicating factor to her medical care. Plan/VTE VTE Prophylaxis Ordered?: Yes (Heparin SQ) Plan Diet: Continue Current Activity: Continue Current Medications: Taper Antibiotics Diagnostics: Repeat Labs in AM, MRI Anticipated Discharge: Home, Home With Services VS, I&O, 24H, Fishbone VS, I&O, 24H, Fishbone Vital Signs Date Time Temp Pulse Resp B/P Pulse Ox O2 Delivery O2 Flow Rate FiO2 05/04/16 12:20 132/62 05/04/16 11:15 Room Air 05/04/16 06:00 97.0 84 20 93 I&O- Last 24 Hours up to 6 AM 05/04/16 06:00 Intake Total 2900 ml Output Total 3250 ml Balance -350 ml Laboratory Tests 2 05/03/16 16:24: Bedside Glucose (Misc Panel) 183H 05/03/16 20:28: Bedside Glucose (Misc Panel) 218H 05/04/16 06:29: Anion Gap 7L, C-Reactive Protein, Quantitative 1.81H, Blood Urea Nitrogen 14, Creatinine 0.85, Sodium Level 144, Potassium Level 3.2L, Chloride Level 106, Carbon Dioxide Level 31, Calcium Level 7.8L, Glomerular Filtration Rate > 60.0, Magnesium Level 2.0 05/04/16 11:20: Bedside Glucose (Misc Panel) 125H Laboratory Tests 05/04/16 06:29 Calcium Level 7.8 L, Red Blood Count 4.39, Mean Corpuscular Volume 75.6 L, Mean Corpuscular Hemoglobin 23.5 L, Mean Corpuscular Hemoglobin Concent 31.1 L, Red Cell Distribution Width 14.8 H Microbiology 05/01/16 Blood Culture - Preliminary, Resulted No Growth after 48 hours. All Specime... 05/01/16 Blood Culture - Preliminary, Resulted No Growth after 48 hours. All Specime... 05/01/16 Gram Stain - Final, Complete 05/01/16 Sputum Culture - Final, Complete CITLALLI RAMOS MD May 04, 2016 12:36
[2016-05-04 14:00] VITALS: BP_SYST 132; BP_SYST 174; BP_DIAS 70; BP_DIAS 75
[2016-05-04] MEDS: ACETAMINOPHEN TAB 650MG DOSE (2X325MG) PO PRN (15:17)
--- NOTE | 2016-05-04 20:19 | PHACANCOPD ---
PHARMACY VANCOMYCIN DOSING Pt Demographics Demographics Patient Age:61 , Weight:131.300 , Gender: female Adjusted Body Weight DOSING BW = 85KG Events Past 24 Hours Events Past 24 Hours: NO: Change in CrCl, Dialysis, Diuretic Therapy, Elevation in WBC, Fever, Other, Pending Diagnostics, Pending Procedures Vancomycin Vancomycin indication: Hx of MRSA Vancomycin Target Ranges: 15-20 mcg/ml Vancomycin Load Y/N: Yes Load Dose Date Time Re-Vancomycin Load Dose: 1250mg Date: 05/03 Time: 20:30 Vancomycin Dose Date: 05/04/16. CHANGE Current Vancomycin Dose: [1g IV q12h @01:00 05/05/16] Intermittent Dosing?: No Labs Labs Laboratory Tests Test 05/03/16 08:10 05/04/16 19:14 Vancomycin Level Trough 11.6UG/ML (10.0-20.0) 27.3UG/ML (10.0-20.0) Laboratory Tests 05/04/16 06:29 Calcium Level 7.8, Red Blood Count 4.39, Mean Corpuscular Volume 75.6, Mean Corpuscular Hemoglobin 23.5, Mean Corpuscular Hemoglobin Concent 31.1, Red Cell Distribution Width 14.8 Micro Microbiology 05/01/16 Blood Culture - Preliminary, Resulted No Growth after 72 hours. All specime... 05/01/16 Blood Culture - Preliminary, Resulted No Growth after 72 hours. All specime... 05/01/16 Gram Stain - Final, Complete 05/01/16 Sputum Culture - Final, Complete Creatinine Clearance Date:05/04/16. Creatinine Clearance: [>75 ml/min]. Assessment and Plan Maintaining Current Dose?: No Reason for dose change: Trough too high Pharmacist Note Pharmacist Note 05/04/16: PHARM.D NOTE (21:00): 61YO FEMALE, 65" in HEIGHT, 131 KG in WEIGHT (DBW = 85KG), CURRENT ABX ZOSYN 3.375GM IV Q8H (22:00) & VANCO 1GM IV Q8H STARTED AT 04:00 05/04/16 A VANCO TROUGH DRAWN THIS EVENING = 27.3 mcg/ml (GOAL 15-20 mcg/ml). ALL DOSING TIMES WERE VERIFIED AND NO NURSING DOSING ADJUSTMENT OUTLIERS ARE NOTED. WE WILL HOLD HER DOSE DUE AT 20:00 AND RESTART HER AT VANCO 1GM IV Q12H STARTING 05/05/16 @ 01:00. WE WILL ORDER A REPEAT VANCO TR WHEN SHE IS ADJUSTED AND AT STEADY STATE. RUBIO. Pharm.D. [facility] May 04, 2016 20:19
[2016-05-04] MEDS: traMADol 50 MG TAB PO PRN (21:33)
[2016-05-04] MEDS: ESCITALOPRAM OXALATE 10 MG TAB (LEXAPRO) PO SCH (21:34)
[2016-05-04 22:00] VITALS: BP 158/60
[2016-05-05] MEDS ORDERED: VANCOMYCIN HCL 1,000 MG, VIAL MATE ADAPTER 1 EACH in D5W 250 ML IV SCH (01:00)
[2016-05-05] MEDS: IPRATROPIUM 0.5MG/ALBUTEROL 2.5MG INH SOL UD 3ML (DUONEB)(J7620) NEB SCH ×4 (01:22→18:59)
[2016-05-05] MEDS: HEPARIN SOD (PORCINE) 5000 UNITS/ML VIAL SQ SCH ×3 (05:29→21:35)
[2016-05-05] MEDS: LEVOTHYROXINE 0.025 MG TAB (25 MCG) PO SCH (05:29)
[2016-05-05] MEDS: PIPERACILLIN/TAZOBACTAM SOD 3.375 GM in D5W MINI-BAG PLUS 50 ML IV SCH (05:29)
[2016-05-05 06:00] VITALS: BP 168/78
[2016-05-05 06:13] LABS: MEAN CORPUSCULAR HEMOGLOBIN 23.2 pg (27.0-33.0); MEAN CORPUSCULAR HGB CONC 30.6 g/dl (32.0-36.5); WHITE BLOOD COUNT 7.2 K/mm3 (4.0-10.0)
[2016-05-05 06:15] LABS: CALCIUM LEVEL 8.3 MG/DL (8.8-10.2); CREATININE FOR GFR 1.08 MG/DL (0.55-1.02); GLOMERULAR FILTRATION RATE 54.9 (>45); MAGNESIUM LEVEL 2.2 MG/DL (1.8-2.4); POTASSIUM SERUM 3.9 MEQ/L (3.5-5.1)
[2016-05-05] MEDS: LOSARTAN 50 MG TAB PO SCH (08:42)
[2016-05-05] MEDS: ASPIRIN 325 MG TAB PO SCH (08:42)
[2016-05-05] MEDS: GABAPENTIN 300 MG CAP PO SCH ×2 (08:42→21:34)
[2016-05-05] MEDS: HumaLOG INSULIN (NovoLOG) PER UNIT SC SCH ×4 (08:42→21:25)
[2016-05-05] MEDS: ATORVASTATIN 20 MG TAB PO SCH (08:42)
[2016-05-05] MEDS: CARVedilol 6.25 MG TAB PO SCH ×2 (08:43→21:34)
[2016-05-05] MEDS: amLODIPine 10 MG TAB PO SCH (08:43)
[2016-05-05] MEDS: FUROSEMIDE 20 MG TAB PO SCH ×2 (08:43→17:00)
[2016-05-05] MEDS: NYSTATIN 100,000 UNITS/GM TOPICAL PWD 15 GM TOP SCH ×2 (08:44→21:35)
[2016-05-05] MEDS: cloNIDine 0.1 MG TAB PO SCH ×2 (08:44→21:34)
[2016-05-05] MEDS: **hydrALAZINE HCL** 25 MG TAB PO SCH ×4 (08:44→21:35)
[2016-05-05] MEDS: PANTOPRAZOLE 40MG TAB (PROTONIX) PO SCH (08:44)
[2016-05-05] MEDS: SANTYL OINT 30GM TOP SCH (08:45)
[2016-05-05] MEDS: ACETAMINOPHEN TAB 650MG DOSE (2X325MG) PO PRN ×2 (08:48→18:26)
--- NOTE | 2016-05-05 13:13 | IPNPDOC ---
Subjective General Date Seen The patient was seen on 05/05/16. Chief Complaint/HPI The patient is a 61-year-old female admitted with a reason for visit of Hypoglycemia. Subjective General: Denies: Chills, Fatigue, Malaise, Night Sweats, Normal Appetite, Other Symptoms, ROS Unobtainable Constitutional: Denies: Chills, Fatigue, Fever, Lethargy, Malaise, Night Sweats , Other, Weakness, Weight Loss Eyes: Denies: Conjunctivae inflammation, Eyelid inflammation, Other, Pain, Redness, Vision change ENT: Denies: Dysphagia, Ear Pain, Epistaxis, Head Aches, Other Symptoms, Post Nasal Drip, Sinus Congestion, Sore Throat Skin: Denies: Breakdown, Bruising, Dry, Itching, Jaundice, Lesions, Nail Changes, Other, Rash Pulmonary: Reports: Cough, Denies: Dyspnea, Other Symptoms, Pleuritic Chest Pain Cardiovascular: Denies: Chest Pain, Edema, Lt Headedness, Orthopnea, Other Symptoms, Palpitations, Paroxysmal Noc. Dyspnea Gastrointestinal: Denies: Abdominal Pain, Constipation, Diarrhea, Hematochezia , Melena, Nausea, Other Symptoms, Vomiting Genitourinary: Denies: Dysuria, Frequency, Hematuria, Incontinence, Other Symptoms, Retention Objective Physical Examination General Exam: Positive: Alert, Cooperative, No Acute Distress Eye Exam: Positive: PERRLA ENT Exam: Positive: Atraumatic Neck Exam: Positive: Supple Chest Exam: Positive: Clear to auscultation, Normal air movement Heart Exam: Positive: Rate Normal, Regular Rhythm Abdomen Exam: Positive: Normal bowel sounds, Soft, Negative: Tenderness Extremity Exam: Positive: Edema, Other (wound vac in place draining serosanguinous fluid), Tenderness Assessment /Plan Problems Problems: (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 MRI on this admission does not reveal any evidence of osteomyelitis. MRA pending. Discontinued IV antibiotics. Discussed with Dr. Kennedy. (2) Hypoglycemia Status: Resolved Discussed With: Patient Problem Specific Plan: Monitor Clinically, Repeat Labs Problem Text: Continue with insulin sliding scale. No basal insulin for now. (3) CHF (congestive heart failure) Status: Chronic Response to Treatment: Compensated Discussed With: Patient Problem Specific Plan: Monitor Clinically Problem Text: Continue with lasix. Grossly compensated. Diastolic dysfunction. (4) HTN (hypertension) Status: Chronic Problem Specific Plan: Monitor Clinically Problem Text: Much improved with addition of clonidine, however elevated again today. Will continue to monitor. Current regimen consists of losartan, hydralazine, norvasc, clonidine and lasix. (5) COPD (chronic obstructive pulmonary disease) Status: Chronic Discussed With: Patient Problem Specific Plan: Monitor Clinically Problem Text: Continue with respiratory regimen. (6) Diabetes Status: Chronic Response to Treatment: Uncontrolled Discussed With: Patient Problem Specific Plan: Monitor Clinically, Repeat Labs Problem Text: Sliding scale insulin. (7) GERD (gastroesophageal reflux disease) Status: Chronic Discussed With: Patient Problem Specific Plan: Monitor Clinically Problem Text: Protonix. (8) Anxiety and depression Status: Chronic Problem Specific Plan: Monitor Clinically Problem Text: Continue with Lexapro. (9) Wheelchair bound Status: Chronic (10) Hyperlipidemia Status: Chronic Problem Text: Continue Lipitor. (11) Diabetic neuropathy Status: Chronic Problem Text: Continue with neurontin. (12) OLGA (obstructive sleep apnea) Status: Chronic (13) Obesity Status: Chronic Problem Text: Further complicating factor to her medical care. Plan/VTE VTE Prophylaxis Ordered?: Yes (Heparin SQ) Plan Diet: Continue Current Activity: Continue Current Diagnostics: Repeat Labs in AM, MRI Anticipated Discharge: Home, Home With Services Disposition Anticipating discharge in 24 hours. Blood glucose have been stable. VS, I&O, 24H, [facility] Vital Signs/I&O Vital Signs Date Time Temp Pulse Resp B/P Pulse Ox O2 Delivery O2 Flow Rate FiO2 05/05/16 08:53 Room Air 05/05/16 08:44 168/78 05/05/16 08:43 74 05/05/16 06:00 97.0 24 90 I&O- Last 24 Hours up to 6 AM 05/05/16 06:00 Intake Total 2360 ml Output Total 2400 ml Balance -40 ml Laboratory Data 24H LABS Laboratory Tests 2 05/04/16 16:59: Bedside Glucose (Misc Panel) 227H 05/04/16 19:14: Vancomycin Level Trough 27.3*H 05/04/16 20:46: Bedside Glucose (Misc Panel) 223H 05/05/16 05:28: Anion Gap 7L, C-Reactive Protein, Quantitative 1.47H, Blood Urea Nitrogen 22#H, Creatinine 1.08H, Sodium Level 143, Potassium Level 3.9#, Chloride Level 105, Carbon Dioxide Level 31, Calcium Level 8.3L, Glomerular Filtration Rate 54.9, Magnesium Level 2.2 05/05/16 11:35: Bedside Glucose (Misc Panel) 205H CBC/BMP Laboratory Tests 05/05/16 05:28 Calcium Level 8.3 L, Red Blood Count 4.39, Mean Corpuscular Volume 76.0 L, Mean Corpuscular Hemoglobin 23.2 L, Mean Corpuscular Hemoglobin Concent 30.6 L, Red Cell Distribution Width 15.0 H Microbiology Microbiology 05/01/16 Blood Culture - Preliminary, Resulted No Growth after 72 hours. All specime... 05/01/16 Blood Culture - Preliminary, Resulted No Growth after 72 hours. All specime... 05/01/16 Gram Stain - Final, Complete 05/01/16 Sputum Culture - Final, Complete CITLALLI RAMOS MD May 05, 2016 13:12
[2016-05-05] MEDS: DOCUSATE SODIUM 100 MG CAP PO PRN (13:27)
[2016-05-05 14:00] VITALS: BP 160/68
--- NOTE | 2016-05-05 15:07 | REP ---
MR angiography of the aorta and lower extremity runoff arteries with IV contrast: History: Osteomyelitis. MR contrast dose: Half-dose protocol was used regarding the patient's decreased EGFR 54 mL per minute. 18 mL of intravenous ProHance is administered. I am informed that some of this leaked around the IV site during the injection and thus the quantity administered intravenously is unknown. MR technique: 3-D MR angiography is acquired in the usual fashion. Maximal intensity projection images are generated along with source coronal images. MR angiographic findings: This study is extremely suboptimal due to the above considerations and patient body habitus. Tortuosity is seen in the abdominal aorta. The renal arteries are not seen. Tortuous but patent common iliac arteries are observed bilaterally. The right external iliac artery is not seen. The left appears to be patent. Flow signal is observed in irregular but patent superficial femoral arteries bilaterally in the thighs. There is atherosclerotic irregularity of the distal superficial femoral arteries bilaterally particularly on the left. There appears to be occlusion of the popliteal arteries bilaterally. Very poor runoff is seen although this study is quite poor especially below the knees. Impression: This study is technically and significantly compromised in terms of image quality. There is evidence of atherosclerotic irregularity with multiple stenoses of the distal superficial femoral arteries bilaterally. There appear to be popliteal artery occlusions. Runoff arteries are not visualized probably due to technical limitations. Signed by Kel Tam MD 05/05/2016 04:34 P
--- NOTE | 2016-05-05 15:30 | REP ---
LEFT UPPER EXTREMITY DUPLEX VENOUS ULTRASOUND: HISTORY: Evaluate for venous thrombosis. FINDINGS: The left internal jugular vein, left subclavian vein, left axillary vein, left brachial vein, left basilic, and cephalic veins are anechoic and compressible on two-dimensional scanning in the left upper extremity. Color-flow imaging is homogeneous. Spectral Doppler interrogation is unremarkable. IMPRESSION: No evidence of venous thrombosis in the left upper extremity. Signed by Kel Tam MD 05/05/2016 04:34 P
[2016-05-05] MEDS: ESCITALOPRAM OXALATE 10 MG TAB (LEXAPRO) PO SCH (21:34)
[2016-05-05 22:00] VITALS: BP 110/60
[2016-05-05] MEDS: traMADol 50 MG TAB PO PRN (22:22)
[2016-05-06] MEDS: IPRATROPIUM 0.5MG/ALBUTEROL 2.5MG INH SOL UD 3ML (DUONEB)(J7620) NEB SCH ×2 (01:46→08:49)
[2016-05-06] MEDS: DOCUSATE SODIUM 100 MG CAP PO PRN ×2 (02:54→08:16)
[2016-05-06] MEDS: LEVOTHYROXINE 0.025 MG TAB (25 MCG) PO SCH (05:41)
[2016-05-06] MEDS: ACETAMINOPHEN TAB 650MG DOSE (2X325MG) PO PRN (05:42)
[2016-05-06] MEDS: HEPARIN SOD (PORCINE) 5000 UNITS/ML VIAL SQ SCH (05:42)
[2016-05-06 05:55] LABS: MEAN CORPUSCULAR HEMOGLOBIN 23.2 pg (27.0-33.0); MEAN CORPUSCULAR HGB CONC 30.9 g/dl (32.0-36.5); MEAN CORPUSCULAR VOLUME 75.2 fl (80.0-96.0); RED CELL DISTRIBUTION WIDTH 15.4 % (11.5-14.5); WHITE BLOOD COUNT 9.1 K/mm3 (4.0-10.0)
[2016-05-06 06:00] VITALS: BP 122/85
[2016-05-06 06:07] LABS: ANION GAP 6 MEQ/L (8-16); BLOOD UREA NITROGEN 18 MG/DL (7-18); CALCIUM LEVEL 8.3 MG/DL (8.8-10.2); CARBON DIOXIDE LEVEL 32 MEQ/L (21-32); CHLORIDE LEVEL 106 MEQ/L (98-107); CREATININE FOR GFR 0.97 MG/DL (0.55-1.02); GLOMERULAR FILTRATION RATE > 60.0 (>45); GLUCOSE, FASTING 162 MG/DL (80-110); MAGNESIUM LEVEL 2.2 MG/DL (1.8-2.4); POTASSIUM SERUM 3.7 MEQ/L (3.5-5.1); SODIUM LEVEL 144 MEQ/L (136-145)
[2016-05-06] MEDS: GABAPENTIN 300 MG CAP PO SCH (08:15)
[2016-05-06] MEDS: ASPIRIN 325 MG TAB PO SCH (08:16)
[2016-05-06] MEDS: ATORVASTATIN 20 MG TAB PO SCH (08:16)
[2016-05-06] MEDS: PANTOPRAZOLE 40MG TAB (PROTONIX) PO SCH (08:16)
[2016-05-06] MEDS: HumaLOG INSULIN (NovoLOG) PER UNIT SC SCH (08:16)
[2016-05-06] MEDS: FUROSEMIDE 20 MG TAB PO SCH (08:17)
[2016-05-06 08:20] VITALS: BP 150/70
[2016-05-06] MEDS: amLODIPine 10 MG TAB PO SCH (08:20)
[2016-05-06] MEDS: cloNIDine 0.1 MG TAB PO SCH (08:20)
[2016-05-06] MEDS: **hydrALAZINE HCL** 25 MG TAB PO SCH (08:20)
[2016-05-06] MEDS: CARVedilol 6.25 MG TAB PO SCH (08:21)
[2016-05-06] MEDS: LOSARTAN 50 MG TAB PO SCH (08:22)
[2016-05-06] MEDS: SANTYL OINT 30GM TOP SCH (08:22)
[2016-05-06] MEDS: NYSTATIN 100,000 UNITS/GM TOPICAL PWD 15 GM TOP SCH (08:22)
[2016-05-06] MEDS ORDERED: INSULANT SC (10:15)
[2016-05-06] MEDS ORDERED: HYDR25TA PO (10:15)
[2016-05-06] MEDS ORDERED: CLONI1TA PO (10:15)
[2016-05-06] MEDS ORDERED: CARV6.25 PO (10:15)
--- NOTE | 2016-05-06 12:19 | DS.PDOC ---
Discharge Summary General Date of Admission May 01, 2016 at 10:40 Date of Discharge May 06, 2016 at 11:59 Attending Physician: Sandeep Ramos Specialist/Consultants Involve: César Kennedy MD Discharge Summary PROCEDURES PERFORMED DURING STAY: [None.] COMPLICATIONS/CHIEF COMPLAINT: Hypoglycemia ADMISSION DIAGNOSES: 1. Hypoglycemia 2. History of osteomyelitis of right toe. 3. LLE wound vac treatment. 3. History of MRSA infection. 4. Diastolic heart failure, ejection fraction of 60-65% from echo in May 2015 , right ventricular systolic pressure 24. 5. Hypertensive heart disease. 6. Type 2 diabetes on insulin, uncontrolled. 7. Chronic back pain. 8. Chronic obstructive pulmonary disease (COPD). No pulmonary function test documented. 9. Wheelchair bound. Gastroesophageal reflux disease (GERD). Depression and anxiety. Diabetic neuropathy. Hyperlipidemia. Candidiasis of the groin. Obstructive sleep apnea (OLGA), could not tolerate CPAP. Obesity. 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 DISCHARGE DIAGNOSES: 1. History of osteomyelitis of right toe. 2. LLE Wound VAC treatment. Diastolic heart failure, ejection fraction of 60-65% from echo in May 2015, right ventricular systolic pressure 24. Hypertensive heart disease. Type 2 diabetes on insulin, uncontrolled. Chronic back pain. Chronic obstructive pulmonary disease (COPD). No pulmonary function test documented. Wheelchair bound. Gastroesophageal reflux disease (GERD). Depression and anxiety. Diabetic neuropathy. Hyperlipidemia. Candidiasis of the groin. Obstructive sleep apnea (OLGA), could not tolerate CPAP. Obesity. 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 HISTORY OF PRESENT ILLNESS: Patient is a 61-year-old female transferred from [facility] for symptomatic hypoglycemia. HOSPITAL COURSE: Patient was admitted for symptomatic hypoglycemia. Patient has history of multiple diabetic foot ulcers, currently receiving wound vac therapy to left foot. Wound care Dr. Kennedy consulted for further assistance. MRI obtained which did not reveal any radiographic evidence of osteomyelitis. MRA obtained for further evaluation of vasculature. Hospital stay significant for poorly controlled blood pressures, and her anti-hypertensives were adjusted accordingly. Her insulin regimen was also decreased given her persistent hypoglycemia. Patient discharged in guarded condition with instructions to follow up as scheduled with surgeon Dr. Steen, tomorrow 05/07/16 as well as her primary care provider. DISCHARGE MEDICATIONS: Please see below. ALLERGIES: Please see below. PHYSICAL EXAMINATION ON DISCHARGE: VITAL SIGNS: Please see below. GENERAL: NAD HEENT: NC/AT NECK: supple CARDIOVASCULAR EXAMINATION: +S1S2, RRR RESPIRATORY EXAMINATION: CTA B/L ABDOMINAL EXAMINATION: soft, obese, NT, +BS EXTREMITIES: left foot wound vac in place PSYCHIATRIC EXAMINATION: AAOx3 LABORATORY DATA: Please see below. IMAGING: MRI Tendon sheath effusion in the plantar midfoot on the right. No evidence of osteomyelitis or abscess seen. MRA This study is technically and significantly compromised in terms of image quality. There is evidence of atherosclerotic irregularity with multiple stenoses of the distal superficial femoral arteries bilaterally. There appear to be popliteal artery occlusions. Runoff arteries are not visualized probably due to technical limitations. VTE Prophylaxis ordered?: yes DISCHARGE CONDITION: stable, guarded DISPOSITION: 01 Home, Self-Care (has public health already in place) ACTIVITY: as tolerated DIET: 2 gram sodium, carb consistent ITEMS TO FOLLOWUP ON OUTPATIENT: 1. Follow up blood pressure readings 2. Follow up blood sugar 3. Follow up Dr. Steen as scheduled for wound care 4. Follow up PCP in 3-5 days TIME SPENT ON DISCHARGE: Greater than 30 minutes. Vital Signs/I&Os Vital Signs Date Time Temp Pulse Resp B/P Pulse Ox O2 Delivery O2 Flow Rate FiO2 05/06/16 08:26 Room Air 05/06/16 08:20 82 150/70 05/06/16 06:00 97.1 19 95 I&O- Last 24 Hours up to 6 AM 05/06/16 06:00 Intake Total 1870 ml Output Total 2850 ml Balance -980 ml Laboratory Data Labs 24H Laboratory Tests 2 05/05/16 16:35: Bedside Glucose (Misc Panel) 165H 05/05/16 19:58: Bedside Glucose (Misc Panel) 177H 05/06/16 05:34: Anion Gap 6L, Blood Urea Nitrogen 18, Creatinine 0.97, Sodium Level 144, Potassium Level 3.7, Chloride Level 106, Carbon Dioxide Level 32, Calcium Level 8.3L, Glomerular Filtration Rate > 60.0, Magnesium Level 2.2 CBC/BMP Laboratory Tests 05/06/16 05:34 Calcium Level 8.3 L, Red Blood Count 4.50, Mean Corpuscular Volume 75.2 L, Mean Corpuscular Hemoglobin 23.2 L, Mean Corpuscular Hemoglobin Concent 30.9 L, Red Cell Distribution Width 15.4 H FSBS Laboratory Tests Test 05/05/16 16:35 05/05/16 19:58 Range/Units Bedside Glucose (Misc Panel) 165 177 80-115 MG/DL Microbiology Microbiology 05/01/16 Blood Culture - Preliminary, Resulted No Growth after 72 hours. All specime... 05/01/16 Blood Culture - Preliminary, Resulted No Growth after 72 hours. All specime... 05/01/16 Gram Stain - Final, Complete 05/01/16 Sputum Culture - Final, Complete Medications Scheduled (Celecoxib) 200 Mg Cap 200 MG PO DAILY (Arnuity Ellipta) 100 Mcg/Act Inh 100 MCG INH DAILY (Anoro Ellipta 62.5-25 Mcg/INH) 1 Aer Aer 1 AER INH QHS Amlodipine Besylate (Amlodipine Besylate) 10 Mg Tab 10 MG PO DAILY Aspirin (Aspirin EC) 325 Mg Tabec 325 MG PO DAILY Atorvastatin Calcium (Atorvastatin Calcium) 40 Mg Tab 40 MG PO DAILY Carvedilol (Carvedilol) 6.25 Mg Tab 6.25 MG PO BID Clonidine Hcl (Catapres) 0.1 Mg Tab 0.1 MG PO BID Doxycycline Hyclate (Doxycycline Hyclate) 100 Mg Tab 100 MG PO DAILY Escitalopram Oxalate (Lexapro) 10 Mg Tab 10 MG PO QHS Furosemide (Lasix) 20 Mg Tab 20 MG PO BID Gabapentin (Gabapentin) 600 Mg Tab 600 MG PO BID Hydralazine HCl (Hydralazine HCl) 25 Mg Tab 25 MG PO QID Hydroxyzine HCl (Hydroxyzine HCl) 25 Mg Tab 25 MG PO TID Insulin Glargine (Lantus) 1 Units/0.01 Ml Susp 7 UNITS SC BID Ipratropium [place] (Ipratropium [place]) 0.5 Mg/2.5 Ml Soln 0.5 MG INH BID Levothyroxine Sodium (Synthroid) 25 Mcg Tab 25 MCG PO DAILY Losartan Potassium (Losartan Potassium) 100 Mg Tab 100 MG PO DAILY Nystatin (Nystatin Powder) 100,000 Unit/Gm Pow 1 DOSE TOP BID ABDOMINAL FOLDS Pantoprazole Sodium (Pantoprazole Sodium) 40 Mg Tab 40 MG PO DAILY Potassium Chloride (Klor-Con M20) 20 Meq Tabcr 20 MEQ PO BID Scheduled PRN Albuterol Sulfate (Ventolin Hfa) 200 Puff/8 Gm Aers 2 PUFF INH QID PRN PRN SHORTNESS OF BREATH Docusate Sodium (Colace) 100 Mg Cap 100 MG PO BID PRN PRN CONSTIPATION Tramadol HCl (Tramadol HCl) 50 Mg Tab 50 MG PO TID PRN PRN PAIN Allergies Coded Allergies: Cephalexin (Verified Allergy, Unknown, 11/19/14) METALS (Verified Allergy, Unknown, 09/08/06) CITLALLI RAMOS MD May 06, 2016 12:19
== END 2016-05-06 11:59 | disposition home health service (06) | DRG 344 ==
LOC: M MSPAV 10:40
PROVIDERS: ADMIT Internal Medicine; ATTEND Internal Medicine
DX: E11.649 Type 2 diabetes mellitus with hypoglycemia without coma (principal); B37.89 Other sites of candidiasis; E11.621 Type 2 diabetes mellitus with foot ulcer; M86.671 Other chronic osteomyelitis, right ankle and foot; E11.40 Type 2 diabetes mellitus with diabetic neuropathy, unspecified; I50.32 Chronic diastolic (congestive) heart failure; I11.9 Hypertensive heart disease without heart failure; E66.01 Morbid (severe) obesity due to excess calories; Z68.41 Body mass index [BMI] 40.0-44.9, adult; Z99.3 Dependence on wheelchair; G47.33 Obstructive sleep apnea (adult) (pediatric); E78.5 Hyperlipidemia, unspecified; K21.9 Gastro-esophageal reflux disease without esophagitis; F32.9 Major depressive disorder, single episode, unspecified; F41.9 Anxiety disorder, unspecified; J44.9 Chronic obstructive pulmonary disease, unspecified; M54.5 Low back pain; Z79.82 Long term (current) use of aspirin; Z79.899 Other long term (current) drug therapy; Z88.8 Allergy status to other drugs, medicaments and biological substances; Z87.891 Personal history of nicotine dependence